=== PATIENT | male | born 1980 | race Caucasian/White ===

== ENCOUNTER → 2016-11-14 | Outpatient (CLI) | payer OTHER ==
[~2016-11-14] MED LIST: AMOXICILLIN500 MG PO; BIAXIN500 MG PO; PREVACID30 M1 PO
== END | disposition disaster alternative care site (69) ==
LOC: GRAD 07:45
DX: R10.9 Unspecified abdominal pain (principal); K59.39 Other megacolon; R63.5 Abnormal weight gain; K66.8 Other specified disorders of peritoneum

== ENCOUNTER → 2016-11-15 | Outpatient (CLI) | payer OTHER | END | disposition disaster alternative care site (69) | LOC: GRAD 09:05 | DX: R19.00 Intra-abdominal and pelvic swelling, mass and lump, unspecified site (principal) ==

== ENCOUNTER → 2016-11-21 | Outpatient (CLI) | payer OTHER ==
[2016-11-21 12:39] LABS: BASOPHIL # 0.1 K/uL (0.0-0.2); BASOPHIL % 0.8 %; EOSINOPHIL # 0.3 K/uL (0.0-0.5); EOSINOPHIL % 4.1 %; HEMATOCRIT 46.6 % (37.0-53.0); HEMOGLOBIN 16.1 g/dL (12.0-17.0); IMMATURE GRANULOCYTE % 0.1 %; LYMPHOCYTE # 2.5 K/uL (0.8-4.0); LYMPHOCYTE % 32.5 %; MCH 30.6 pg (27.0-34.0); MCHC 34.5 gm/dL (32.0-36.5); MCV 88.4 fl (83.0-98.0); MONOCYTE # 0.6 K/uL (0.0-1.0); MONOCYTE % 7.6 %; MPV 10.4 fl (9.4-12.4); NEUTROPHIL # (ANC) 4.3 K/uL (1.4-9.0); NEUTROPHIL % 54.9 %; NRBC % 0 /100WBC (0-0.00); PLATELET COUNT 220 K/uL (150-450); RBC 5.27 M/uL (4.00-6.00); RDW-CV 12.3 % (11.9-14.6); WBC 7.8 K/uL (4.0-11.0)
[2016-11-21 12:46] LABS: PROTIME 10.7 SECONDS (9.6-11.1)
[2016-11-21 15:07] LABS: PERITONEAL FLUID TURBIDITY 4+ (CLEAR)
[2016-11-21 15:50] LABS: % PERITONEAL FLUID MONO/MACRO 29 % (0-0); % PERITONEAL FLUID NEUT 29 % (0-25)
== END | disposition disaster alternative care site (69) ==
LOC: GOPD 11-16 → GOPP 12:02
PROVIDERS: Family Medicine; Radiology Diagnostic Radiology
PROC: 0WBH3ZX Excision of Retroperitoneum, Percutaneous Approach, Diagnostic (ICD-10-PCS; principal; 2016-11-21)
DX: R19.00 Intra-abdominal and pelvic swelling, mass and lump, unspecified site (principal)
CPT/HCPCS: J2250; J3010; J7030

== ENCOUNTER → 2017-04-19 | Outpatient (CLI) | payer OTHER | END | disposition disaster alternative care site (69) | LOC: GRAD 12:45 | DX: M54.2 Cervicalgia (principal); J84.10 Pulmonary fibrosis, unspecified | CPT/HCPCS: Q9967 ==